=== PATIENT | male | born 1950 | race African-American/Black ===

== ENCOUNTER → 2016-10-17 | Outpatient (CLI) | payer MEDICARE ==
[~2016-10-17] MED LIST: ASPI81TA82 PO; BENA40TA PO; CALA240T PO; CENTCHW3; CINN500C PO; CYCL1TAB29 PO; GABA100C4 PO; HYDR-3366 PO; MEDR4PAK PO; MEDR4PAK3 PO; MULT-135 PO; SIMV20TA PO; TERB250T4 PO; VENL37.5 PO; VERA1TAB17 PO; VITA100064 PO; ZOCO40TA PO
== END ==
LOC: CPRE 11:40
PROVIDERS: ATTEND Neurological Surgery
DX: Z01.812 Encounter for preprocedural laboratory examination (principal); M48.06 Spinal stenosis, lumbar region

== ENCOUNTER → 2016-10-22 | Day surgery (SDC) | payer MEDICARE ==
--- NOTE | 2016-10-19 16:40 | MH ---
cc: HILARY HARPER D.O., ROHIT K. M.D. DERBENWICK, MARY J. M.D. DATE OF ADMISSION: 10/22/2016 ADMITTING DIAGNOSIS: Lumbar spinal stenosis. HISTORY OF PRESENT ILLNESS This is a 66-year-old male who presented to us for evaluation of tingling in his feet. He states his symptoms started 9 months ago on a progressively gotten worse. He denies any low back pain, radicular pain or weakness of his lower extremities. He states that the tingling starts with standing. He states he will notice it when walking also. He states he saw neurology and was placed on a Medrol Dosepak and symptoms when away but slowly returned after the steroids were gone. He has also tried gabapentin for his symptoms which did not help much. He has been placed on the venlafaxine. He is going to physical therapy for 4 weeks which didn't benefit him he says, he says that the longer he walks the worse the symptoms become until he sits and then his symptoms improve. He denies any bowel or bladder incontinence. He states that he has weakness in his lower extremities and numbness in his legs and he feels unsteady at times and has fallen. PAST MEDICAL HISTORY 1. Significant for prostate cancer 2. Hypertension 3. Hyperlipidemia. PAST SURGICAL HISTORY: He has had prostate surgery over ten years ago. CURRENT MEDICATIONS: 1. Verapamil 240 mg daily. 2. Simvastatin 20 mg daily. 3. Benazepril 40 mg daily. 4. Venlafaxine 37.5 mg three times a day. 5. Terbinafine 250 mg the first 7 days of the month. 6. Vitamin D and cinnamon [id number]. Multivitamin daily. Aspirin stopped this one week before surgery. ALLERGIES She has no known drug allergies. FAMILY HISTORY His mother and father are . She is unsure of the causes. Sister is alive at 67 year's old in good health. He has another sister who is alive and 62 years, although good health. He has a brother who is alive 55 in good health and another brother who is alive at 54. Good health. SOCIAL HISTORY He is retired. He is . He has one child. He does not smoke and has not smoked previously. He does not drink alcohol. REVIEW OF SYSTEMS CONSTITUTIONAL: He denies any fever or chills and ears, nose, Throat: No pharyngitis, exudates or bloody drainage from his nose. CARDIOVASCULAR SYSTEM: He denies any chest pain or palpitations RESPIRATORY: No cough or shortness of breath. GENITOURINARY: No dysuria hematuria. MUSCULOSKELETAL: Positive for difficulty walking and fatigue in his legs. Denies any low back pain. SKIN: No rashes or pruritus. NEUROLOGIC: Positive for paresthesias in his legs with standing and walking. No difficulty with speech or memory GASTROINTESTINAL: No nausea, vomiting, No abdominal pain. PSYCHIATRIC: No anxiety or depression symptoms. ENDOCRINE: No polyuria, polydipsia. HEMATOLOGIC: No bruising or bleeding tendencies. PHYSICAL EXAMINATION HEAD, EYES, EARS, NOSE, AND THROAT: Head: Normocephalic, atraumatic. NECK: Supple. No carotid bruits heard on auscultation. LUNGS: Clear to auscultation bilaterally. HEART: Regular rate and rhythm, normal S1, S2. ABDOMEN: Soft, nontender. Positive bowel sounds. SKIN: Reveals no cyanosis or erythema. MUSCULOSKELETAL: He has 5/5 strength in the lower extremities. NEUROLOGIC: He is awake, alert and oriented. Cranial nerves II-XII are grossly intact. His speech fluent. Comprehension is good. Reflexes are 2+ in the lower extremities. No clonus. IMPRESSION 66-year-old male with severe neurogenic claudication from multilevel lumbar spinal stenosis from L2-L5 from facet ligamentum flavum hypertrophy along with disk protrusions. He has moderate L5-S1 disk degeneration, but does not relate much low back pain. He has failed conservative measures and is requesting surgical intervention. PLAN We have discussed the treatment options with the patient. We have recommended a L2, L3, L4 and L5 decompressive laminectomy with medial facetectomy. The procedure as well as the risk benefit of the recovery time were explained in great detail with the patient. We have discussed the procedure using spine models in the office and all risk questions and his 's questions were answered to his satisfaction. No guarantees were given to the results of the surgery. The patient is requesting that we proceed and he was therefore scheduled accordingly. Chad oLpez MD DICTATED BY: ALLEY Nielsen /3:28 PM /3:44 PM
[~2016-10-22] VITALS: Ht 172.7 cm; Wt 85.5 kg
[~2016-10-22] MED LIST changes: +ACETAMINOPHEN 1000 MG/100 ML VIAL IV ONE; -ASPI81TA82 PO; +BUPIVACAINE/EPINEPHRINE 0.5% 50 ML VIAL ONE; -CALA240T PO; -CENTCHW3; +DEXAMETHASONE SOD PHOS 4 MG/ML VIAL ONE; +DO NOT ADM ANY ANTICOAGULANT DRUGS XX PRN; +FAMOTIDINE 20 MG/2 ML VIAL ONE; +GELFOAM SIZE 100 ONE; +INSULIN HUMAN REGULAR 1,000 UNITS/10 ML VIAL SQ PRN; +LACTATED RINGER'S 1000 ML INJ 1,000 ML IV ONE; +LACTATED RINGER'S 1000 ML IV SCH; -MEDR4PAK3 PO; +METOPROLOL TARTRATE 25 MG TAB PO PRN; +MIDAZOLAM HCL 2 MG/2 ML VIAL ONE; +ONDANSETRON HCL 4 MG/2 ML VIAL IV PUSH ONE; +PROPOFOL 200 MG/20 ML AMP IV ONE; +SODIUM CHLOR 0.9% 1000 ML INJ 1,000 ML IV SCH; +SODIUM CHLORID 0.9% 500 ML IV SCH; +THROMBIN (TOPICAL) 5,000 UNIT VIAL ONE; +VANCOMYCIN HCL 1000 MG ON-CALL/NS 250 ML IV SCH; +VANCOMYCIN HCL 1000 MG VIAL ONE; +VANCOMYCIN HCL 1000 MG VIAL OTHER ONE; -ZOCO40TA PO; +ePHEDrine/NS 50 MG/5 ML SYR IV ONE; +fentaNYL CITRATE 250 MCG/5 ML AMP ONE; +methylPREDNISolone ACETATE 40 MG/ML VIAL ONE
[2016-10-22 06:28] VITALS: BP 129/77; PULSE 81; RESP 18; TEMP 98.1; O2SAT 96
--- NOTE | 2016-10-22 11:57 | PD.OP ---
Zoe Aguilar D.O. Operative Report Date of Surgery: Oct 22, 2016 Preoperative Diagnosis: Lumbar L2-3, L3-4, and L4-5 facet and ligamentum flavum hypertrophy with associated spinal stenosis; low back pain with neurogenic claudication Postoperative Diagnosis: Same Procedure: Lumbar L2, L3, L4 and L5 decompressive laminotomies with medial facetectomies; microsurgical technique Anesthesia: Gen. endotracheal by Oskar Raman Surgeon: Chad Lopez M.D. Senior Nurse Manager(s): Pastora Preciado Operation and Findings: Following administration of general endotracheal anesthesia, patient received vancomycin 1 g intravenously. Sequential compression devices were placed for DVT prophylaxis along with a Lawson catheter. He was then turned in prone position on Eris frame and the Collin table and all pressure points adequately padded. The lumbar region was then shaved and prepped with a Betadine and ChloraPrep. Sterile draping undertaken with Ioban. Midline incision overlying the L2-5 levels was then made after infiltrating the skin with 0.5% Marcaine with epinephrine solution. The skin incision was made extending down through the fascia and then using the subperiosteal plane on the right side the muscular attachments to the spinous process and lamina were detached. Intraoperative fluoroscopy was used for level confirmation and further dissection undertaken using microtechnique with microscope magnification. The inferior portion of the right L2, L3, L4 and superior portion of the L5 lamina were then drilled out and the underlying ligamentum flavum also removed. There was facet arthropathy noted and the medial portion of facets was also resected and the lateral recess decompressed on the right side as well as with gentle thecal sac retraction on the left side through the right sided hemilaminotomy approach. The spinal canal which was significantly stenosed was completely decompressed from the L2 to L5 levels this point. Epidural venous stasis which he with the bipolar cautery along with Gelfoam and thrombin and bone wax used at the laminotomy edges for hemostasis. The area was then copiously irrigated with vancomycin solution. The retractors removed and the muscle fascia proximal using 2-0 Vicryl interrupted stitches. 3-0 Vicryl subcuticular stitches were also placed in an interrupted fashion and planned skin closure was with Mastisol and Steri-Strips. A sterile dressing was then applied and the patient then turned in the supine position and extubated and taken to recovery room in stable condition. There were no intraoperative complications and all sponge and needle count was correct at the end of the procedure. Estimated blood loss about 100 ml. Chad Lopez MD Oct 22, 2016 11:57
[2016-10-22 13:48] VITALS: BP 121/74; PULSE 96; RESP 18; TEMP 97.9; O2SAT 97
--- NOTE | 2016-10-22 14:28 | RADRPT ---
EXAM DATE/TIME: 10/22/2016 08:44 [facility] COMPARISON: No previous studies available for comparison. INDICATIONS : Laminotomies, L2-5, MEDICAL HISTORY : None. SURGICAL HISTORY : None. ENCOUNTER: Initial ACUITY: 1 day PAIN SCORE: 0/10 LOCATION: Lumbar spine FINDINGS: Nature views in the OR reveal a posterior marker obliquely projecting caudad with its tip in the supe rficial soft tissues just posterior to the L5-S1 disc space which demonstrates degenerative changes. There is a wire mesh in this region just cephalad extending from L4 posterior to L5 CONCLUSION: Operative films as described Salvatore Floyd MD on October 22, 2016 at 14:25 Board Certified Radiologist. This report was verified electronically.
== END | disposition home or self-care (01) ==
LOC: HSDC 05:54
PROVIDERS: ATTEND Neurological Surgery
DX: M48.06 Spinal stenosis, lumbar region (principal)
CPT/HCPCS: 00630; 63030; 63035; 72020; 76000; J0131; J1030; J1100; J2250; J2405; J3010; J3370; J7050; J7120